=== PATIENT | female | born 1950 | race Caucasian/White ===

== ENCOUNTER 2022-09-06 17:12 | Emergency (ER) | payer MEDICARE, OTHER, SELFPAY ==
[2022-09-06] VITALS (14 sets, daily range): BP systolic 162–206; BP diastolic 73–109; PULSE 77–110; RESP 12–23; TEMP 36.9; O2SAT 97–99; BMI 28.3
--- NOTE | 2022-09-06 17:52 | DI.RAD.S_ITS ---
PROCEDURE: XR CHEST 1V INDICATIONS: chest pain TECHNIQUE: One view of the chest was acquired. COMPARISON: None. FINDINGS: Surgical changes and devices: None. Lungs and pleura: On this semiupright portable chest examination, no large pneumothorax or large pleural effusions are seen. No focal infiltrates are seen. Mediastinum: Mediastinal contours appear normal. Heart size is normal. Bones and chest wall: No suspicious bony lesions. Age-appropriate bony degenerative changes are seen. Overlying soft tissues appear unremarkable. IMPRESSION: Portable chest within normal limits. Dictated by: Luis Angel Breen M.D. on 09/06/2022 at 17:25 Approved by: Luis Angel Breen M.D. on 09/06/2022 at 17:26
[2022-09-06 18:03] LABS: Add Manual Diff / Slide Review NO; Basophils Absolute Auto 100 /uL (0-100); Basophils Percent Auto 1.1 % (0-2); Eosinophils Absolute Auto 100 /uL (0-450); Hematocrit 47.1 % (36-46); Hemoglobin 16.5 g/dL (12.0-16.0); Lymphocytes Absolute Auto 1700 /uL (1100-4500); Mean Corpuscular HGB Conc 35.1 % (30-36); Mean Corpuscular Hemoglobin 33.8 PG (26-34); Mean Corpuscular Volume 96.2 fL (80-100); Monocytes Absolute Auto 400 /uL (0-900); Monocytes Percent Auto 6.9 % (3-14); Neutrophils Absolute Auto 4000 /uL (1500-7000); Platelet Count 251 X10^3/uL (150-400); Red Blood Cell Count 4.89 X10^6/uL (4.0-5.2); Red Cell Distribution Width 12.7 % (11.6-14.8); White Blood Cell Count 6.3 X10^3/uL (4.5-11.0)
[2022-09-06 18:05] LABS: Alanine Aminotransferase 78 IU/L (<35); Albumin 4.7 g/dL (3.5-5.0); Albumin Globulin Ratio 1.3 (1.0-2.8); Alkaline Phosphatase 86 U/L (38-126); Aspartate Aminotransferase 63 IU/L (14-36); BUN Creatinine Ratio 19.8 (6-22); Bilirubin Total 0.5 mg/dL (0.2-1.3); Blood Urea Nitrogen 17 mg/dL (7-17); Calcium 10.2 mg/dL (8.4-10.2); Carbon Dioxide 23 mmol/L (22-32); Chloride 100 mmol/L (98-107); Creatine Kinase 82 U/L (30-135); Estimated Glomerular Filt Rate > 60 mL/min (>60); Globulin 3.5 g/dL (1.7-4.1); Glucose 115 mg/dL (80-110); HEMOLYSIS < 15 (0-50); Lipase 186 U/L (23-300); Potassium 3.5 mmol/L (3.4-5.1); Sodium 139 mmol/L (137-145); Total Protein 8.2 g/dL (6.3-8.2)
--- NOTE | 2022-09-06 18:11 | DI.CT.S_ITS ---
PROCEDURE: CT HEAD/BRAIN WO CON INDICATIONS: rosenbaum, high bp TECHNIQUE: Noncontrast 4.5 mm thick angled axial sections acquired from the foramen magnum to the vertex, with coronal and sagittal reformats. For radiation dose reduction, the following was used: automated exposure control, adjustment of mA and/or kV according to patient size. COMPARISON: None. FINDINGS: Image quality: Excellent. CSF spaces: Basal cisterns are patent. No extra-axial fluid collections. The ventricles are symmetric in size and shape. Brain: No intracranial bleeds or masses. There is cerebral volume loss for age, with resultant ventricular and sulcal prominence. There are periventricular and deep white matter chronic small vessel ischemic changes. There is intracranial internal carotid artery atherosclerosis. Skull and face: Calvarium and visualized facial bones appear intact, without suspicious lesions. Sinuses: Visualized sinuses and mastoids are clear. IMPRESSION: 1. No CT evidence of acute intracranial abnormalities. 2. Age related volume loss and mild white matter chronic small vessel ischemic changes. Dictated by: Jarrell Castaneda M.D. on 09/06/2022 at 18:29 Approved by: Jarrell Castaneda M.D. on 09/06/2022 at 18:32
[2022-09-06 18:16] LABS: Troponin I < 0.012 ng/mL (0.01-0.034)
--- NOTE | 2022-09-06 19:10 | ED_ITS ---
HPI - General Adult General Chief complaint: Hypertension Stated complaint: high bp/headache x1 day Time Seen by Provider: 09/06/22 17:52 Source: patient Mode of arrival: Ambulatory Limitations: no limitations History of Present Illness HPI narrative: This is a 72-year-old female with history of hypertension, ulcerative colitis on losartan 100 mg and HCTZ 25 mg for at least 1-2 years. Patient is also on Delzicol for her ulcerative colitis. Patient states she has been checking her blood pressures for the past month she had a follow-up visit a month ago in July was noted to be 160/1 70s and asked to check daily. She is been averaging about 160 systolic to 70-80 diastolic but states for the last 3 days s he sometimes having blood pressure is 1 80 to 190s with a diastolic above 95. Patient has a follow up appointment on September 17 but became concerned she had 1 number as high as 200 today for her systolic. She is been taking her medications regularly she normally takes him in the morning. She denies symptoms other than mild headache most mornings. She states this has been going on for awhile she states it gets better as the day goes away. She does sometimes have headaches intermittently and she is will take 1 Excedrin and it usually goes away. She states for the last 5 days she is been taking 1 in the morning and 1 in the evening. Patient denies chest pain no shortness of breath, no nausea no vomiting no vision changes. No numbness, tingling or weakness, no other neurologic changes. She notes her socks or sometimes a little tight but no obvious swelling to her legs. She would some loose stools 2 or 3 days ago but no frequent or persistent diarrhea constipation. No urinary symptoms. Patient states she is been slowly titrated up over the past 20 years starting with an KATLYN inhibitor stopped because of a cough, then started on losartan starting at 25 mg slowly titrated up and then HCTZ was added a couple years ago. Patient has not had any new medication changes. She states her only surgeries or bunion and hammertoe. She is allergic to chloramphenicol which he received as a child. No tobacco, 1 or 2 alcoholic drinks nightly. No illicit. Patient's primary care is Tara Cid at the [facility]. Related Data Home Medications Medication Instructions Recorded Confirmed hydrochlorothiazide 25 mg tablet 25 mg PO DAILY 09/06/22 09/06/22 losartan 100 mg tablet 100 mg PO DAILY 09/06/22 09/06/22 Allergies Allergy/AdvReac Type Severity Reaction Status Date / Time chloramphenicol Allergy Severe HIVES Verified 09/06/22 17:29 [From CHLOROMYCETIN] Review of Systems Review of Systems ROS Unobtainable: All systems reviewed & are unremarkable except as noted in HPI and below Patient History Social History Smoking Status: Former smoker Smoking Status: Former smoker alcohol intake frequency: holidays/special occasions only Substance Use Type: does not use Exam Narrative Exam Narrative: GENERAL: Alert and oriented x three, well-nourished female in mild distress HEENT: Head normocephalic, atraumatic, EOMI, pupils reactive, face symmetric, moist mucous membranes NECK: Supple, full range of motion CARDIOVASCULAR: Regular rate and rhythm without murmurs, rubs or gallops. No JVD. No swelling bilateral lower extremities RESPIRATORY: Breath sounds equal bilaterally, no wheezes rales or rhonchi. ABDOMEN: Soft, nontender. Normoactive bowel sounds all 4 quadrants. No guarding or rebound, rigidity, no mass : No CVA tenderness EXTREMITIES: Normal range of motion, no clubbing or edema. Neurovascularly intact NEUROLOGICAL: Cranial nerves II through XII grossly intact. Moving all extremities SKIN: Warm, dry, no petechiae, no rashes or lesions. Initial Vital Signs Initial Vital Signs: Vital Signs Pulse Rate 110 H 09/06/22 17:23 Respiratory Rate 21 09/06/22 17:23 Pulse Oximetry 97 09/06/22 17:23 Course Orders Ordered: ED Orders 09/06/22 17:25 Complete Blood Count AUTO DIFF Stat Comprehensive Metabolic Panel Stat Lipase Stat Troponin & CK Cardiac Panel Stat 09/06/22 17:52 XR chest 1V Stat EKG-12 Lead Stat 09/06/22 18:11 CT head/brain wo con Stat Vital Signs Vital signs: Vital Signs - 8 hr 09/06/22 17:26 09/06/22 17:23 09/06/22 17:30 Temperature 98.4 F Pulse Rate 110 H 110 H 105 H Respiratory Rate 18 21 20 Blood Pressure 206/109 H Pulse Oximetry 97 97 97 Oxygen Delivery Method Room Air 09/06/22 18:00 09/06/22 18:04 09/06/22 18:04 Temperature Pulse Rate 94 H 93 H Respiratory Rate 20 20 Blood Pressure 179/94 H Pulse Oximetry 98 98 Oxygen Delivery Method Room Air 09/06/22 18:17 09/06/22 18:16 09/06/22 18:16 Temperature Pulse Rate 82 84 Respiratory Rate 16 17 Blood Pressure 171/87 H 171/87 H Pulse Oximetry 98 98 Oxygen Delivery Method Room Air 09/06/22 18:28 09/06/22 18:28 09/06/22 18:30 Temperature Pulse Rate 91 H 85 Respiratory Rate 12 17 Blood Pressure 177/85 H Pulse Oximetry 97 99 Oxygen Delivery Method 09/06/22 19:00 09/06/22 19:06 09/06/22 19:06 Temperature Pulse Rate 77 80 Respiratory Rate 18 17 Blood Pressure 163/81 H Pulse Oximetry 97 98 Oxygen Delivery Method 09/06/22 19:20 09/06/22 19:20 09/06/22 19:30 Temperature Pulse Rate 83 93 H Respiratory Rate 16 21 Blood Pressure 163/73 H Pulse Oximetry 97 97 Oxygen Delivery Method Medical Decision Making Lab Data 09/06/22 17:25 09/06/22 17:25 Labs: Lab Results 09/06/22 09/06/22 Range/Units 17:25 17:25 WBC 6.3 (4.5-11.0) X10^3/uL RBC 4.89 (4.0-5.2) X10^6/uL Hgb 16.5 H (12.0-16.0) g/dL Hct 47.1 H (36-46) % MCV 96.2 (80-100) fL MCH 33.8 (26-34) PG MCHC 35.1 (30-36) % RDW 12.7 (11.6-14.8) % Plt Count 251 (150-400) X10^3/uL Neut % (Auto) 64.0 (50-75) % Lymph % (Auto) 27.0 (25-40) % Treasure % (Auto) 6.9 (3-14) % Eos % (Auto) 1.0 L (2-4) % Baso % (Auto) 1.1 (0-2) % Neut # (Auto) 4000 (4626-7275) /uL Lymph # (Auto) 1700 (3747-4438) /uL Treasure # (Auto) 400 (0-900) /uL Eos # (Auto) 100 (0-450) /uL Baso # (Auto) 100 (0-100) /uL Sodium 139 (137-145) mmol/L Potassium 3.5 (3.4-5.1) mmol/L Chloride 100 (98-107) mmol/L Carbon Dioxide 23 (22-32) mmol/L BUN 17 (7-17) mg/dL Creatinine 0.86 (0.52-1.04) mg/dL Estimated GFR > 60 (>60) mL/min BUN/Creatinine Ratio 19.8 (6-22) Glucose 115 H (80-110) mg/dL Calcium 10.2 (8.4-10.2) mg/dL Total Bilirubin 0.5 (0.2-1.3) mg/dL AST 63 H (14-36) IU/L ALT 78 H (<35) IU/L Alkaline Phosphatase 86 (38-126) U/L Total Creatine Kinase 82 (30-135) U/L CK-MB (CK-2) TNP CK-MB (CK-2) Rel Index TNP Troponin I < 0.012 (0.01-0.034) ng/mL Total Protein 8.2 (6.3-8.2) g/dL Albumin 4.7 (3.5-5.0) g/dL Globulin 3.5 (1.7-4.1) g/dL Albumin/Globulin Ratio 1.3 (1.0-2.8) Lipase 186 (23-300) U/L Imaging Data Chest x-ray: Radiologist's Impression: [address] [address] XRay Report Signed Patient: Kezia Mazariegos MR#: [id number] : 1950 Acct:[id number] Age/Sex: 72 / F Date of Service: 09/06/22 Loc: ED Accession Number: [id number] ?? Procedure: XR chest 1V Ordering Provider: Josephine Gaxiola D.O. PROCEDURE:? XR CHEST 1V ? INDICATIONS:? chest pain ? TECHNIQUE:? One view of the chest was acquired.? ? COMPARISON:? None. ? FINDINGS:? ? Surgical changes and devices:? None.? ? Lungs and pleura:? On this semiupright portable chest examination, no large pneumothorax or large pleural effusions are seen.? No focal infiltrates are seen.? ? Mediastinum:? Mediastinal contours appear normal.? Heart size is normal.? ? Bones and chest wall:? No suspicious bony lesions.? Age-appropriate bony degenerative changes are seen.? Overlying soft tissues appear unremarkable.? IMPRESSION:? ? Portable chest within normal limits. ? ? ? Dictated by: Luis Angel Breen M.D. on 09/06/2022 at 17:25 ? ? Approved by: Luis Angel Breen M.D. on 09/06/2022 at 17:26?? CT scan - head: Radiologist's Impression: Kezia Mazariegos??72??F??1950 ? Allergy/Adv: chloramphenicol Close Head CT (Signed) Jarrell Castaneda - 09/06/22 Chest X-Ray (Signed) Luis Angel Breen - 09/06/22 Launch?[place] [id number] CT Scan Report Signed Patient: Kezia Mazariegos MR#: [id number] : 1950 Acct:[id number] Age/Sex: 72 / F Date of Service: 09/06/22 Loc: Accession Number: [id number] ?? Procedure: CT head/brain wo con Ordering Provider: Katarina Orona D.O. PROCEDURE:? CT HEAD/BRAIN WO CON ? INDICATIONS:? rosenbaum, high bp ? TECHNIQUE:? Noncontrast 4.5 mm thick angled axial sections acquired from the foramen magnum to the vertex, with coronal and sagittal reformats.? For radiation dose reduction, the following was used:? automated exposure control, adjustment of mA and/or kV according to patient size.? ? COMPARISON:? None. ? FINDINGS:? Image quality:? Excellent.? ? CSF spaces:? Basal cisterns are patent.? No extra-axial fluid collections.? The ventricles are symmetric in size and shape.? ? Brain:? No intracranial bleeds or masses.? There is cerebral volume loss for age, with resultant ventricular and sulcal prominence.? There are periventricular and deep white matter chronic small vessel ischemic changes.? There is intracranial internal carotid artery atherosclerosis.? ? Skull and face:? Calvarium and visualized facial bones appear intact, without suspicious lesions.? ? Sinuses:? Visualized sinuses and mastoids are clear.? ? IMPRESSION:? 1. No CT evidence of acute intracranial abnormalities.? 2. Age related volume loss and mild white matter chronic small vessel ischemic changes.? ? Dictated by: Jarrell Castaneda M.D. on 09/06/2022 at 18:29 ? ? Approved by: Jarrell Castaneda M.D. on 09/06/2022 at 18:32?? ECG Data Attestation: I personally reviewed and interpreted this ECG as follows: Prior ECG tracings: not available for review Interpretation: Sinus rhythm rate of 92 GA 126 QRS is 76 and QTC of 452. No acute ST changes noted. Nonspecific change. No priors for comparison. MDM Narrative Medical decision making narrative: This is a 72-year-old who presents with concern for hypertension she has been averaging 160 over 70s for the past month she is been monitoring once daily on the recommendation of her physician and is supposed to follow up September 17. She became anxious when in the last 3 days she is been 180s to 190s with a diastolic greater than 95 fairly consistently. She is had some mild headaches she gets these intermittently but they have been a little bit more persistent no other s ymptoms. She had head CT, chest x-ray, CBC, CMP, AST ALT are slightly elevated at 63 and 78, troponin rest of LFTs are all negative. Patient does not have any prior EKGs for comparison but nonspecific. No acute chest x-ray changes. Negative head CT. Patient was 200 systolic but improved to 160s in the department but has been persistently elevated with daily monitoring. Discussed with patient will have her increase her HCTZ to 50 mg once daily she can start this in the morning and continue her losartan 100 mg with once daily blood pressure checks and follow up with her physician. She is going to also touch base with her physician for any recommendations or to see if they can see her so kd on Thursday morning. Patient states she has plenty of HCTZ and can take 2 tablets and does not need a refill. Discharge Plan Departure Patient Disposition: Home Clinical Impression: Hypertension Instructions: DI for High Blood Pressure Activity Restrictions/Additional Instructions: Follow-up with your physician, touch base with their office on Thursday to see if they would like to see you sooner or adjust your medications in a different way. Continue your losartan 100 mg once daily, increase your hydrochlorothiazide to 50 mg daily or 2 tablets. Return for severe headaches, sudden vision changes, new numbness tingling weakness facial droop difficulty with ambulation, new chest pain or shortness of breath or other new or concerning changes. Prescriptions: No Action hydrochlorothiazide 25 mg tablet 25 mg PO DAILY losartan 100 mg tablet 100 mg PO DAILY Stand Alone Forms: Patient Portal/API
== END 2022-09-06 19:55 | disposition home or self-care (01) ==
PROVIDERS: Emergency Medicine; Emergency Provider Emergency Medicine
DX: I10 Essential (primary) hypertension (principal); R07.9 Chest pain, unspecified; R51.9 Headache, unspecified
CPT/HCPCS: 36415; 70450; 71045; 80053; 82550; 83690; 84484; 85025; 93005; 93010; 99284

== ENCOUNTER → 2023-07-31 07:23 | Outpatient (CLI) | payer MEDICARE, OTHER, SELFPAY ==
[2023-07-31 08:56] LABS: Hemoglobin A1C% w Est Avg Glu 5.7 % (4.0-6.0)
[2023-07-31 09:05] LABS: Carbon Dioxide 31 mmol/L (22-32); Chloride 98 mmol/L (98-107); HEMOLYSIS < 15 (0-50); Potassium 4.8 mmol/L (3.4-5.1); Sodium 136 mmol/L (137-145)
== END ==
PROVIDERS: Referring Provider Podiatrist; Visit Provider Podiatrist
DX: Z01.818 Encounter for other preprocedural examination (principal); R73.9 Hyperglycemia, unspecified
CPT/HCPCS: 36415; 80051; 83036; 93005; 93010

== ENCOUNTER 2023-10-16 18:15 | Emergency (ER) | payer MEDICARE, OTHER, SELFPAY ==
[2023-10-16 18:25] VITALS: BP 146/76; PULSE 85; RESP 18; TEMP 36.1; O2SAT 95; BMI 27.4
[2023-10-16 19:42] LABS: Appearance Urine UA CLEAR; Bilirubin Urine UA NEGATIVE (NEGATIVE); Color Urine UA YELLOW; Glucose Urine UA NEGATIVE (Negative); Ketones Urine UA NEGATIVE (NEGATIVE); Leukocyte Esterase Urine UA NEGATIVE (NEGATIVE); Nitrite Urine UA NEGATIVE (Negative); Occult Blood Urine UA NEGATIVE (Negative); Protein Urine UA NEGATIVE (Negative); Urobilinogen Urine UA 0.2 E.U./dL (0.2)
[2023-10-16 19:44] LABS: pH Urine UA 6.5 (4.5-8.0)
[2023-10-16 19:50] LABS: Bacteria Urine None Seen; Culture Indicated Urine Cult Not Indicated; RBC Urine None Seen (0-5/HPF); Squamous Epithelial Cell Urine 1-5 /HPF (0-5/HPF); Urine Volume 10mL (spun); WBC Urine None Seen (0-5/HPF)
--- NOTE | 2023-10-16 20:40 | ED.GENADULT ---
HPI - General Adult General Chief complaint: Urogenital-Female Stated complaint: incontinence/blood in urine Time Seen by Provider: 10/16/23 20:06 Source: patient Mode of arrival: Ambulatory History of Present Illness HPI narrative: Patient is a 73-year-old female. Not on blood thinners. Has not had issues with urinary incontinence in the past. She states that earlier today she thought that maybe she was having some problems controlling her urine. She thought that there was a small spot in her underwear she went to the bathroom. States she wiped and saw a small amount of blood. Did not specifically see any blood in her urine. She has a history of ulcerative colitis. Here in the emergency department when she gave a urine sample she did have a bowel movement. She states when she wiped her rectum there was blood on the toilet paper. There was no blood from the urethra. No vaginal bleeding. No fevers. No recent illnesses. No sore throat. Related Data Home Medications Medication Instructions Recorded Confirmed hydrochlorothiazide 25 mg tablet 25 mg PO DAILY 09/06/22 09/06/22 losartan 100 mg tablet 100 mg PO DAILY 09/06/22 09/06/22 Allergies Allergy/AdvReac Type Severity Reaction Status Date / Time chloramphenicol Allergy Severe HIVES Verified 09/06/22 17:29 [From CHLOROMYCETIN] Review of Systems Constitutional Constitutional: Reports system reviewed and no additional complaints, except as documented Gastrointestinal Gastrointestinal: Reports system reviewed and no additional complaints, except as documented Genitourinary Genitourinary: Reports system reviewed and no additional complaints, except as documented Integumentary/Breasts Skin/Breast: Reports system reviewed and no additional complaints, except as documented Hematologic/Lymphatic On Anticoagulants: No Patient History Social History Smoking Status: Former smoker Smoking Status: Former smoker alcohol intake frequency: 0-2 drinks per day Alcohol type: wine Substance Use Type: does not use Exam Initial Vital Signs Initial Vital Signs: Vital Signs Temperature 96.9 F L 10/16/23 18:25 Pulse Rate 85 10/16/23 18:25 Respiratory Rate 18 10/16/23 18:25 Blood Pressure 146/76 H 10/16/23 18:25 Pulse Oximetry 95 10/16/23 18:25 Oxygen Delivery Method Room Air 10/16/23 18:25 HENRI Head: normal to inspection and normocephalic GI Inspection: normal to inspection General: bimanual renal exam normal bilaterally Skin General: no rashes or lesions noted Course Orders Ordered: ED Orders 10/16/23 19:28 Urinalysis and Microscopic Stat Vital Signs Vital signs: Vital Signs - 8 hr 10/16/23 18:25 10/16/23 20:45 Temperature 96.9 F L Pulse Rate 85 90 Respiratory Rate 18 18 Blood Pressure 146/76 H 136/93 H Pulse Oximetry 95 99 Oxygen Delivery Method Room Air Room Air Medical Decision Making Lab Data Lab results reviewed: Yes I reviewed the patient's lab results. Labs: Lab Results 10/16/23 Range/Units 19:28 Urine Color Yellow Urine Appearance Clear Urine pH 6.5 (4.5-8.0) Ur Specific [place] 1.010 (1.000-1.035) Urine Protein Negative (Negative) Urine Glucose (UA) Negative (Negative) g/dL Urine Ketones Negative (NEGATIVE) Urine Occult Blood Negative (Negative) Urine Nitrate Negative (Negative) Urine Bilirubin Negative (NEGATIVE) Urine Urobilinogen 0.2 (0.2) E.U./dL Ur Leukocyte Esterase Negative (NEGATIVE) Urine RBC None seen (0-5/HPF) Urine WBC None seen (0-5/HPF) Ur Squamous Epith Cells 1-5 /hpf (0-5/HPF) Urine Bacteria None seen (None) Ur Culture Indicated? Cult not indicated Vol Urine Centrifuged 10ml (spun) Urine Dip Bedside Urine Glucose Negative Bedside Urine Bilirubin - Negative Bedside Urine Ketone - Negative Urine Specific [place] 1.015 Bedside Urine Occult Blood - Negative Bedside Urine pH 6.0 Bedside Urine Protein - Negative Bedside Urine Urobilinogen - Negative Bedside Urine Nitrite - Negative Bedside Urine Leukocytes - Negative Esterase Point of care testing: Urine Dip Bedside Urine Glucose Negative Bedside Urine Bilirubin - Negative Bedside Urine Ketone - Negative Urine Specific [place] 1.015 Bedside Urine Occult Blood - Negative Bedside Urine pH 6.0 Bedside Urine Protein - Negative Bedside Urine Urobilinogen - Negative Bedside Urine Nitrite - Negative Bedside Urine Leukocytes - Negative Esterase MDM Narrative Medical decision making narrative: Patient's symptoms seem to have now resolved. She has no problems controlling her bladder here in the ER. Her urinalysis shows no signs of infection. No hematuria. No recent illnesses. No indication for labs. No indication for radiologic studies. No indication for antibiotics. Advised that she contact her primary doctor so that she could have a follow-up to make sure that the hematuria does not return. She was given return precautions and follow-up instructions. She expressed understanding and agreement. Discharge Plan Departure Patient Disposition: Home Clinical Impression: Hematuria Instructions: DI for Hematuria Activity Restrictions/Additional Instructions: Continue to take all of your medications as directed. I recommend that you keep your scheduled appointment with your primary doctor that is coming up in the next couple weeks. Be sure that you were increasing your fluid intake. Return to the emergency department for new or worsening symptoms. Prescriptions: No Action hydrochlorothiazide 25 mg tablet 25 mg PO DAILY losartan 100 mg tablet 100 mg PO DAILY Referrals: [facility] [Primary Care Provider] - Stand Alone Forms: Patient Portal/API
[2023-10-16 20:45] VITALS: BP 136/93; PULSE 90; RESP 18; O2SAT 99
== END 2023-10-16 20:48 | disposition home or self-care (01) ==
PROVIDERS: Emergency Provider Emergency Medicine
DX: R31.9 Hematuria, unspecified (principal)
CPT/HCPCS: 81001; 81003; 99282

== ENCOUNTER → 2023-12-07 10:41 | Outpatient (CLI) | payer MEDICARE, OTHER, SELFPAY ==
--- NOTE | 2023-12-07 10:42 | DI.RAD.S_ITS ---
PROCEDURE: XR DEXA AXIAL SKELETON INDICATIONS: OSTEOPENIA COMPARISON: None. FINDINGS: Lumbar Spine: Bone mineral density 1.127 g/cm2, T score 0.7, normal. Left Hip: Bone mineral density 0.899 g/cm2, T score -0.3, normal. Left Femoral Neck: Bone mineral density 0.736 g/cm2, T score -1, normal. Right Hip: Bone mineral density is 0.985 g/cm2, T score 0.4, normal. Right Femoral Neck: Bone mineral density 0.834 g/cm2, T score -0.1, normal. Fracture Risk Calculation (when applicable): Cannot be calculated due to normal bone mineral density. IMPRESSION: Normal bone mineral density. Follow-up guidelines as follows: Osteoporosis: Consider a repeat DEXA and Vertebral Fracture Assessment (VFA) exam in 2 years or sooner if medically necessary, to reassess this patient's status. Osteopenia: Consider a repeat DEXA in 2-3 years to reassess this patient's status, or if there is a new clinical indication. Normal: Consider a repeat DEXA in 5 years or sooner, or if there is a new clinical indication. Dictated by: René Li M.D. on 12/07/2023 at 13:40 Approved by: René Li M.D. on 12/07/2023 at 13:41
== END ==
PROVIDERS: Referring Provider Nurse Practitioner Family; Visit Provider Nurse Practitioner Family
DX: Z78.0 Asymptomatic menopausal state (principal)
CPT/HCPCS: 77080

== ENCOUNTER 2024-06-13 08:27 | Day surgery (SDC) | payer MEDICARE, OTHER, SELFPAY ==
--- NOTE | 2024-06-13 | PATH_ITS ---
[facility] Accession Number: [id number] No. of containers..05 Tissue . 01 Material submitted: . PART A: colon - ASCENDING COLON X4 PART B: colon - TRANSVERSE COLON X4 PART C: colon - DESCENDING COLON X4 PART D: colon - SIGMOID COLON X4 PART E: rectum - RECTAL X4 . 01 Diagnosis: A. ASCENDING COLON POLYPS, BIOPSY: Colonic mucosa with benign lymphoid aggregate. Additional polypoid colonic mucosa with no neoplasia identified, consistent with mucosal redundancy. . B. TRANSVERSE COLON POLYPS, BIOPSY: Colonic mucosa with benign lymphoid aggregates. Additional polypoid colonic mucosa with no neoplasia identified, consistent with mucosal redundancy. . C. DESCENDING COLON POLYPS, BIOPSY: Colonic mucosa with benign lymphoid aggregates. Additional polypoid colonic mucosa with no neoplasia identified, consistent with mucosal redundancy. . D. SIGMOID COLON POLYPS, BIOPSY: Colonic mucosa with benign lymphoid aggregate. Additional polypoid colonic mucosa with no neoplasia identified, consistent with mucosal redundancy. . E. RECTAL POLYPS, BIOPSY: Hyperplastic polyp. Additional colonic mucosa with benign lymphoid aggregate. Additional polypoid colonic mucosa with no neoplasia identified, consistent with mucosal redundancy. [facility] 06/15/2024 1242 Local . 01 Electronically signed: . Lisa Beard MD, Pathologist NPI- [id number] . 01 Gross description: . A. Received in formalin with two patient identifiers and ascending colon biopsy x4, are three lemos soft tissue fragments, 0.2 to 0.4 cm in greatest dimension, submitted in A1. B. Received in formalin with two patient identifiers and transverse colon biopsy x4, are four lemos soft tissue fragments, 0.2 to 0.3 cm in greatest dimension, submitted in B1. C. Received in formalin with two patient identifiers and descending colon biopsies x4, are four lemos soft tissue fragments, 0.2 to 0.3 cm in greatest dimension, submitted in C1. D. Received in formalin with two patient identifiers and sigmoid colon biopsies x4, are three lemos soft tissue fragments, 0.1 to 0.3 cm in greatest dimension, submitted in D1. E. Received in formalin with two patient identifiers and rectal biopsies x4, are four lemos soft tissue fragments all measuring 0.3 cm in greatest dimension, submitted in E1. ([id number]) /MRV 06/14/2024 1946 Local . 01 Pathologist provided ICD-10: D12.8, K63.89 . 01 CPT . 411152, 159492, [id number], 488696, 937750 Specimen Comment: A courtesy copy of this report has been sent to [phone] Performed at: [address] [id number] MD Ricky Reyes MD Phone: [phone]
[2024-06-13 09:09] VITALS: BP 142/85; PULSE 95; RESP 17; TEMP 36.7; O2SAT 95
--- NOTE | 2024-06-13 09:37 | PM.HP.1 ---
History of Present Illness History of Present Illness Date Patient Seen: 06/13/24 Time Patient Seen: 09:37 Chief complaint: [facility] Narrative: 73-year-old female with a history of ulcerative colitis going back to when she stopped smoking around the year 1999. She controls her symptoms with Delzicol. Her last colonoscopy was 5 years ago with me at [facility]. She believes she is in clinical remission. She does not recall a history of polyps. There was no clinical information in [facility] today so history is as per patient. [facility] Medical History Wears glasses Headache (~2004) Rubella (~1973) Measles Chicken pox Hypertension (~1999) Osteopenia (~1999) Ulcerative colitis (~1999) Postmenopausal bleeding Surgical History Anesthesia Hx of toe surgery (2022) History of bunionectomy (2014) Hx of arthroscopy of left knee (2005) History of section (1975) Hx of tubal ligation (1977) Family History Father Diabetes mellitus Mother Diabetes mellitus Hypertension Stroke Brother History of heart disease Social History household members: spouse Smoking Status: Former smoker alcohol intake: current Meds Home Medications and Allergies Home Medications Medication Instructions Recorded Confirmed Type hydrochlorothiazide 25 mg tablet 25 mg PO DAILY 09/06/22 06/13/24 History losartan 100 mg tablet 100 mg PO DAILY 09/06/22 06/13/24 History mesalamine 400 mg capsule (with 400 mg PO 12/11/23 12/11/23 History delayed release tablets inside) (Delzicol) metoprolol succinate 25 mg 25 mg PO DAILY 12/11/23 06/13/24 History tablet,extended release 24 hr rosuvastatin 5 mg tablet 2.5 mg PO BEDTIME 12/11/23 06/13/24 History omega 7-tru-lye-fish oil 60 mg-90 1 cap PO DAILY 06/13/24 06/13/24 History mg-500 mg capsule (Fish Oil) vitamin A-vitamin C-vit E-min 1 tab PO DAILY 06/13/24 06/13/24 History tablet Allergies Allergy/AdvReac Type Severity Reaction Status Date / Time chloramphenicol Allergy Severe HIVES Verified 09/06/22 17:29 [From CHLOROMYCETIN] Review of Systems Review of Systems ROS: Yes All systems reviewed with the patient and are negative except as otherwise documented Exam Vital Signs (past 8 hours): - 06/13/24 09:09 Temperature 98.1 F Pulse Rate 95 H Respiratory Rate 17 Blood Pressure 142/85 H Pulse Oximetry 95 Oxygen Delivery Method Room Air Oxygen Delivery Method Room Air Const General: cooperative HENMT Head: normal to inspection Eyes General: appearance normal, both eyes and all related structures Neck Neck: normal visual inspection Chest Chest: normal inspection of the chest Resp Effort & Inspection: normal respiratory effort Cardio Rate: regular rate GI Inspection: normal to inspection Skin General: no rashes or lesions noted Neuro General: patient alert and patient awake Extrem General: normal to inspection and no pedal edema Psych Appearance: grossly normal Assessment & Plan Assessment & Plan narrative: 73-year-old female with longstanding ulcerative colitis. Overdue for surveillance. She is in clinical remission. Colonoscopy is pursued today. Time-Based Coding :: [TOTAL MINUTES] spent with patient and on the chart (including review of chart, obtaining history, exam, reviewing outside data, placing orders, documenting exam and treatment plan, and counseling patient) on [DATE].
--- NOTE | 2024-06-13 09:38 | PM.PREOP ---
Pre-operative Note Interval Note History & Physical reviewed/Exam performed by Physician: Yes Changes to H&P: No ASA Class (for procedural sedation): II
--- NOTE | 2024-06-13 11:30 | PM.OP.COLON ---
Operative Date/Time/Diagnoses Date of procedure: 06/13/24 Time of procedure: 11:30 Pre-op diagnosis: History of ulcerative colitis Post-op diagnosis: same Procedure & Clinicians Study performed: Colonoscopy with biopsies Same procedure as scheduled: Yes Indications: History of ulcerative colitis Surgeon: Jovon Giron Procedure Notes SCOAP/Timeout: Done Procedure in detail: After the risks and benefits were explained, written and verbal informed consent was obtained. The patient was brought into the procedure room and placed into the left lateral decubitus position. Please see anesthesia notes for sedation details. Digital rectal examination was accomplished. The scope was introduced into the patient and advanced under direct visualization to the cecum as identified by the appendiceal orifice and ileocecal valve. The scope was slowly withdrawn to carefully examine the mucosa for any defects or lesions. Comprehensive imaging was accomplished throughout the rectum including the dentate line. The colon was decompressed, the scope was then removed from the patient who tolerated the procedure well. Pediatric colonoscope Bowel prep adequate Scope withdrawal time: 20 minutes Sedation minutes: 29 Complications: none Impression: There was perhaps a slight loss of the typical vascularity in the rectosigmoid region but no overt inflammation throughout the entire colon. The terminal ileum was briefly interrogated and appeared normal. Four biopsy specimens were taken from each segment of the colon in the ascending, transverse, descending, sigmoid, and finally rectum for surveillance. No significant polyps or mass lesions identified throughout. Endoscopic diagnosis 1. No evidence of active colitis 2. Minimal loss of rectosigmoid vascularity but otherwise a relatively normal exam Post-procedure Plan for aftercare: 1. Await histology. 2. Continue current therapy 3. Repeat colonoscopy 2 years. Disposition: PACU
[2024-06-13 11:34] VITALS: BP 117/54; PULSE 75; RESP 15; TEMP 36.3; O2SAT 98
[2024-06-13 11:39] VITALS: BP 121/59; PULSE 76; RESP 12; O2SAT 98
[2024-06-13 11:44] VITALS: BP 105/62; PULSE 70; RESP 4; O2SAT 98
[2024-06-13 11:49] VITALS: BP 125/70; PULSE 67; RESP 14; O2SAT 98
[2024-06-13 11:55] VITALS: BP 120/60; PULSE 68; RESP 14; O2SAT 98
== END 2024-06-13 11:56 | disposition home or self-care (01) ==
PROVIDERS: Referring Provider Internal Medicine Gastroenterology; Visit Provider Internal Medicine Gastroenterology
PROC: 0DJD8ZZ Inspection of Lower Intestinal Tract, Via Natural or Artificial Opening Endoscopic (ICD-10-PCS; CPT 45378; principal; 2024-06-13 10:00)
DX: Z87.19 Personal history of other diseases of the digestive system (principal); K62.1 Rectal polyp; K63.5 Polyp of colon
CPT/HCPCS: 45380; J2704

== ENCOUNTER 2024-11-21 14:38 | Day surgery (SDC) | payer MEDICARE, OTHER, SELFPAY ==
[2024-11-15 07:52] VITALS: BMI 26.5
[2024-11-21] VITALS (7 sets, daily range): BP systolic 139–168; BP diastolic 61–83; PULSE 50–87; RESP 11–20; TEMP 36.1–36.5; O2SAT 95–100; BMI 27.0
--- NOTE | 2024-11-21 | PATH_ITS ---
[facility] Accession Number: [id number] No. of containers..01 Tissue . 01 Material submitted: . endometrium - ENDOMETRIAL CURETTINGS . 01 Diagnosis: ENDOMETRIUM, CURETTINGS: Scant and superficial biopsy of benign, inactive-appearing endometrium, please see comment. Benign endo/ectocervical tissue also present. Negative for atypia, or malignancy. V 11/23/2024 1604 Local . 01 Comment: In this limited sample, the findings suggest atrophy. However, clinical and radiologic correlation will be required to ensure that the endometrium has been adequately sampled. . In this scant and superficial biopsy, there is no evidence of atypia or malignancy. . 01 Electronically signed: . Fer Contreras MD, Pathologist NPI- [id number] . 01 Gross description: . Received in formalin with two identifiers and endometrial curettings, are multiple lemos to brown soft tissue fragments admixed with mucoid material aggregating to 1.6 x 1.1 x 0.3 cm. Filtered and submitted in cassette A1. ([id number]) /JAQUELINE 11/22/2024 0917 Local . 01 Pathologist provided ICD-10: N95.0 . 01 CPT . 172637 Specimen Comment: A courtesy copy of this report has been sent to [facility] Pathology Performed at: [address] [address], [place], [place] [id number] MD Ricky Reyes MD Phone: [phone]
--- NOTE | 2024-11-21 15:10 | PM.PREOP ---
Pre-operative Note Interval Note History & Physical reviewed/Exam performed by Physician: Yes Changes to H&P: No ASA Class (for procedural sedation): II
[2024-11-21] MEDS: LACTATED RINGERS 1,000 ML 42 ML IV (15:16)
[2024-11-21] MEDS: ACETAMINOPHEN IV 1,000 MG/100 ML VIAL 400 MG IV (15:17)
--- NOTE | 2024-11-21 15:18 | SUR.OPER ---
Lithotomy on padded OR bed, head on pillow, arms secured on padded arm boards at <90 degrees abduction. Legs secured in padded yellow fins stirrups.
[2024-11-21] MEDS: SILVER NITRATE STICK 1 EACH TOP (15:50)
--- NOTE | 2024-11-21 15:57 | PM.OP.1 ---
Operative Date/Time/Diagnoses Date of procedure: 11/21/24 Time of procedure: 15:57 Pre-op diagnosis: recurrent postmenopausal bleeding Post-op diagnosis: same Procedure & Clinicians Procedure: hysteroscopy, D&C Same procedure as scheduled: Yes Indications: recurrent postmenopausal bleeding Surgeon: Shyann Garcia Click Yes if Unassisted: Yes Anesthesia Type: General Operative Notes Findings: normal external female genitalia perineum and anus without rash or lesion atrophic cervix, moderately stenotic diffuse endocerivcal polyps, endometrium overall atrophic in appearance bilateral ostia visualized Closure Type: not applicable Specimen(s): other (endometrial curettings ) Estimated Blood Loss (mL): 5 Blood products transfused: none Procedure in detail: Pt was taken to the operating room, transferred to OR table and anesthesia was induced with placement of ETT.? Pt had her legs placed in Kofi stirrups and an exam under anesthesia was performed. The patient was prepped and draped in a sterile fashion.? A time out was performed. ?A sterile speculum was inserted into the vagina.? The cervix was visualized and grasped anteriorly using a single tooth tenaculum.? Attempts at uterine sound as well as dilation of the endocerivcal os unsuccessful secondary to stenosis; decision made to proceed with hysteroscopic hydrodissection under direct visualization using the myosure scope after which the endometrial cavity was visualized including noted bilateral ostia, additional findings as noted above. The small Myosure device was introduced and the observed endocerivcal pathology was fractionally resected under direct visualization. The hysteroscope was removed and the uterus was sharply curetted until a gritty texture was noted throughout.? The tenaculum was removed and hemostasis was noted at insertion sites.? The speculum was removed and hemostasis was again noted to be excellent.? The patient then had her legs taken out of stirrups.? The patient tolerated the procedure well and without difficulty.? The patient was awakened from anesthesia and taken to PACU in stable condition. Complications: none Post-operative Condition: stable Disposition: PACU Plan for aftercare: anticipate dc to home pending routine postoperative recovery
[2024-11-21] MEDS: OXYCODONE IR 5 MG TABLET PO (16:32)
== END 2024-11-21 16:49 | disposition home or self-care (01) ==
PROVIDERS: Referring Provider Obstetrics & Gynecology; Visit Provider Obstetrics & Gynecology
PROC: 0UDB8ZZ Extraction of Endometrium, Via Natural or Artificial Opening Endoscopic (ICD-10-PCS; CPT 58558; principal; 2024-11-21 16:15)
DX: N95.0 Postmenopausal bleeding (principal); N84.1 Polyp of cervix uteri; N88.8 Other specified noninflammatory disorders of cervix uteri; N88.2 Stricture and stenosis of cervix uteri
CPT/HCPCS: 58558; J0131; J1885; J2405; J2704

== ENCOUNTER → 2025-01-03 13:04 | Outpatient (CLI) | payer MEDICARE, OTHER, SELFPAY ==
--- NOTE | 2025-01-03 13:06 | DI.MG.S_ITS ---
MM diagnostic mammo unilat LT: 01/03/2025. BI-RADS: 2 CLINICAL: 74-year old female for left diagnostic mammogram. Tyrer-Cuzick lifetime risk of 1.5%. No personal or first-degree family history of breast cancer. PRIOR EXAMS 11/11/2024, 11/04/2023, 02/26/2022. MAMMOGRAPHY TECHNIQUE: 2D and 3D (tomosynthesis) digital mammographic views obtained, with additional images as needed for full coverage. Current study was also evaluated with a Computer Aided Detection (CAD) system. DENSITY Left: A. The breasts are almost entirely fatty. MAMMOGRAPHY FINDINGS Left: Inner at 9:00, Middle depth, measuring 0.4cm: There is a benign- appearing intramammary lymph node. IMPRESSION: Left * No evidence of malignancy with benign findings. RECOMMENDATIONS Bilateral * Annual screening mammography. OVERALL ASSESSMENT CATEGORY BI-RADS-2: Benign. [employer] recommends annual screening mammography beginning at age 40 for women with average risk of breast cancer. ELECTRONICALLY SIGNED: Rakan Romero M.D. on 01/03/2025 at 01:58:31 PM PT Interpreting Station ID: [id number]
== END ==
DX: R92.8 Other abnormal and inconclusive findings on diagnostic imaging of breast (principal); R92.312 Mammographic fatty tissue density, left breast
CPT/HCPCS: 77065; G0279